=== PATIENT | male | born 1975 | race Caucasian/White ===

== ENCOUNTER 2020-09-04 18:29 | Emergency (ER) | payer BC ==
[~2020-09-04] VITALS: Ht 170.2 cm; Wt 70.3 kg
[2020-09-04 19:37] LABS: URINE BILIRUBIN NEGATIVE (Negative); URINE BLOOD TRACE (Negative); URINE CLARITY CLEAR; URINE COLOR YELLOW; URINE GLUCOSE-RANDOM* NEGATIVE (Negative); URINE KETONES NEGATIVE (Negative); URINE LEUKOCYTES-REFLEX NEGATIVE (Negative); URINE NITRITE-REFLEX NEGATIVE (Negative); URINE PROTEIN (DIPSTICK) NEGATIVE (Negative); URINE SPECIFIC GRAVITY 1.025 (1.005-1.035); URINE UROBILINOGEN 0.2 E.U./dl (0.2-1.0)
[2020-09-04 21:55] LABS: ABSOLUTE NEUTROPHILS 4.1 thou/uL (1.4-8.2); BASOPHILS 0.7 % (0.0-2.0); EOSINOPHILS 5.5 % (0.0-3.0); HEMATOCRIT 41.6 % (42.0-52.0); HEMOGLOBIN 14.7 gm/dL (14.0-18.0); LYMPHOCYTES 30.8 % (24.0-44.0); MCH 32.2 pg (26.0-34.0); MCHC 35.3 g/dL (28.0-37.0); MCV 91.2 fL (80.0-100.0); MONOCYTES 9.9 % (1.0-8.0); PLATELET COUNT 230 thou/uL (150-400); POLYS 53.1 % (36.0-66.0); RBC 4.56 mil/uL (4.50-6.00); RDW 13.9 % (10.5-14.5); WBC 7.7 thou/uL (4.0-11.0)
[2020-09-04 22:01] LABS: CALCIUM 8.6 mg/dL (8.5-10.1); CREATININE 0.9 mg/dL (0.7-1.3); POTASSIUM 4.1 mmol/L (3.5-5.1)
[2020-09-04 22:07] LABS: TOTAL BILIRUBIN 0.2 mg/dL (0.2-1.0); TOTAL PROTEIN 7.6 g/dL (6.4-8.2)
[2020-09-05] MEDS ORDERED: ZOFRAN ODT4 MG PO (01:06)
[2020-09-05 01:24] VITALS: BP 126/83
== END 2020-09-05 01:25 | disposition home or self-care (01) ==
LOC: ER 18:29 → EDBD 18:29 → ER 09-05 01:25
PROVIDERS: Physician Assistant
DX: R19.7 Diarrhea, unspecified (principal); R10.13 Epigastric pain; R10.33 Periumbilical pain; E78.00 Pure hypercholesterolemia, unspecified